=== PATIENT | male | born 1965 | race Caucasian/White ===

== ENCOUNTER 2017-11-30 19:40 | Observation (INO) | payer SELFPAY ==
[~2017-11-30] VITALS: Ht 170.2 cm; Wt 129.8 kg
[2017-11-30 21:58] LABS: HEMATOCRIT 29.6 % (38.0-50.0); HEMOGLOBIN 9.1 G/DL (12.5-16.6); MCH 24.9 PG (29.0-34.0); MCHC 30.7 G/DL (30.0-36.0); MCV 80.9 FL (86-99); RBC DIS.WIDTH-CV 18.4 % (11.8-14.6); RBC DIS.WIDTH-SD 53.7 % (39-53); RED BLOOD COUNT 3.66 M/uL (4.00-5.50); WHITE BLOOD COUNT 6.2 K/uL (4.1-10.2)
[2017-11-30 22:02] LABS: CHLORIDE 103 mEq/L (99-109); POTASSIUM 4.1 mEq/L (3.7-5.4); SODIUM 138 mEq/L (136-147)
[2017-11-30 22:04] LABS: GLUCOSE 285 mg/dL (70-99)
[2017-11-30 22:08] LABS: CREATININE 1.2 mg/dL (0.6-1.3); GFR ESTIMATE (CALCULATED) > 59 mL/min/ (58.99-99999)
[2017-11-30 22:09] LABS: UREA NITROGEN (BUN) 21 mg/dL (9-23)
[2017-11-30 22:32] LABS: PLAT.SUFFICIENCY DECREASED; PLATELET COUNT 90 K/uL (156-360)
[2017-11-30] MEDS ORDERED: GLIPIZIDE5 MG PO (22:50)
[2017-11-30] MEDS ORDERED: METFORMIN HCL500 MG PO (22:51)
[2017-11-30] MEDS ORDERED: LISINOPRIL-HCT1 EACH PO (22:53)
[2017-11-30] MEDS ORDERED: FISH OIL 1,2001 EAC4 PO (22:56)
[2017-11-30] MEDS ORDERED: VITAMIN D31000 UNIT PO (22:56)
[2017-11-30] MEDS ORDERED: SUPER B COMPL400 MCG PO (22:57)
[2017-11-30] MEDS ORDERED: LO-DOSE ASPIRIN81 M2 PO (22:59)
[2017-11-30] MEDS ORDERED: VITAMIN E400 UNIT PO (22:59)
[2017-11-30] MEDS ORDERED: FLONASE16 G1 BOTH NARES (23:00)
[2017-11-30] MEDS ORDERED: ZEGERID20 MG PO (23:01)
[2017-12-01 05:22] VITALS: BP 145/67
[2017-12-01 08:37] VITALS: BP 150/67
[2017-12-01 11:19] VITALS: BP 140/64
[2017-12-01] MEDS ORDERED: THERAGRAN1 TABLET PO (12:48)
[2017-12-01] MEDS ORDERED: PREDNISONE20 MG PO (12:48)
[2017-12-01] MEDS ORDERED: FAMOTIDINE20 MG PO (12:48)
[2017-12-01] MEDS ORDERED: BENADRYL25 MG PO (12:48)
[2017-12-01] MEDS ORDERED: NORVASC5 MG PO (12:48)
[2017-12-01] MEDS ORDERED: HYDROCHLOROTHIA25 MG PO (12:48)
[2017-12-02 09:12] LABS: HEMOGLOBIN A1c (GLYCOHEMOGLOB) 8.1 % (Below 5.7)
== END 2017-12-01 15:06 | disposition home or self-care (01) ==
LOC: EME → EDBD 19:40 → EME 19:40 → EDOF 12-01 03:03 → 3EAST 12-01 03:03 → EDOF 12-01 03:03 → ENRESERV 12-01 03:06 → 3EAST 12-01 04:36
PROVIDERS: Emergency Medicine; Hospitalist
DX: T78.3XXA Angioneurotic edema, initial encounter (principal); T46.4X5A Adverse effect of angiotensin-converting-enzyme inhibitors, initial encounter; S01.512A Laceration without foreign body of oral cavity, initial encounter; F10.10 Alcohol abuse, uncomplicated; E11.65 Type 2 diabetes mellitus with hyperglycemia; I10 Essential (primary) hypertension; D64.9 Anemia, unspecified; D69.6 Thrombocytopenia, unspecified; Z79.84 Long term (current) use of oral hypoglycemic drugs; Z87.891 Personal history of nicotine dependence; Z79.82 Long term (current) use of aspirin; Z88.0 Allergy status to penicillin; Z93.3 Colostomy status; K02.9 Dental caries, unspecified
CPT/HCPCS: 70360; 71045; 80048; 82948; 83036; 85027; 86850; 86900; 86901; 99281; 99285; G0378; J0171; J1100; J1200; J1815; J2920; J2930; J7030; J7050; S0028